=== PATIENT | male | born 1950 | race Caucasian/White ===

== ENCOUNTER 2017-11-12 12:59 | Observation (INO) | payer BC, OTHER ==
[~2017-11-12] VITALS: Ht 193 cm; Wt 108.1 kg
[2017-11-12 13:22] LABS: INTER. NORMALIZED RATIO 1.1
[2017-11-12 13:23] LABS: AMYLASE 87 IU/L (1-118)
[2017-11-12 13:25] LABS: PTT 31.2 SEC (25-37)
[2017-11-12 13:32] LABS: LIPASE 14 U/L (1.0-51.0)
[2017-11-12 13:38] LABS: TROP-I INTERPRETATION NEGATIVE; TROPONIN-I < 0.01 ng/mL (0.0-0.30)
[2017-11-12 15:14] LABS: AMPHETAMINE NEGATIVE (500 ng/mL); BARBITURATES NEGATIVE (200 ng/mL); BENZODIAZEPINES NEGATIVE (150 ng/mL); BUPRENORPHINE NEGATIVE (10 ng/mL); COCAINE NEGATIVE (150 ng/mL); METHADONE NEGATIVE (200 ng/mL); METHAMPHETAMINE NEGATIVE (500 ng/mL); OPIATES (MORPHINE) NEGATIVE (100 ng/mL); OXYCODONE NEGATIVE (100 ng/mL); PHENCYCLIDINE NEGATIVE (25 ng/mL); PROPOXYPHENE NEGATIVE (300 ng/mL); THC CANNABINOIDS NEGATIVE (50 ng/mL); TRICYCLIC ANTIDEPRESSANTS NEGATIVE (300 ng/mL)
[2017-11-12 21:08] VITALS: BP 132/79
[2017-11-12 23:24] VITALS: BP 126/73
[2017-11-13 00:48] LABS: TROP-I INTERPRETATION NEGATIVE; TROPONIN-I < 0.01 ng/mL (0.0-0.30)
[2017-11-13 03:37] VITALS: BP 122/76
[2017-11-13 06:13] LABS: HEMATOCRIT 42.6 % (38.0-50.0); HEMOGLOBIN 14.4 G/DL (12.5-16.6); MCH 30.9 PG (29.0-34.0); MCHC 33.8 G/DL (30.0-36.0); MCV 91.4 FL (86-99); PLATELET COUNT 192 K/uL (156-360); RBC DIS.WIDTH-CV 12.7 % (11.8-14.6); RBC DIS.WIDTH-SD 42.2 % (39-53); RED BLOOD COUNT 4.66 M/uL (4.00-5.50); WHITE BLOOD COUNT 6.2 K/uL (4.1-10.2)
[2017-11-13 06:39] LABS: TROP-I INTERPRETATION NEGATIVE; TROPONIN-I < 0.01 ng/mL (0.0-0.30)
[2017-11-13 07:22] LABS: HDL CHOLESTEROL 36 MG/DL (Desirable>=40); LDL CHOLESTEROL 88 mg/dL (Desirable<100); NON-HDL CHOLESTEROL 119 mg/dL (Desirable<160); TOTAL CHOLESTEROL 155 mg/dL (Desirable<200); TRIGLYCERIDES 154 MG/DL (Normal: <150)
[2017-11-13 08:10] VITALS: BP 152/82
[2017-11-13 08:15] VITALS: BP 148/80
[2017-11-13 10:00] LABS: HEMOGLOBIN A1c (GLYCOHEMOGLOB) 5.5 % (Below 5.7)
[2017-11-13 12:19] VITALS: BP 171/69
[2017-11-13] MEDS ORDERED: ATORVASTATIN CA20 MG PO (16:23)
[2017-11-13] MEDS ORDERED: ASPIR-LOW81 MG PO (16:23)
[2017-11-13] MEDS ORDERED: LISINOPRIL5 MG PO (16:24)
[2017-11-13 16:52] VITALS: BP 157/74
== END 2017-11-13 18:42 | disposition home or self-care (01) ==
LOC: EME 12:59 → EDOF 17:26 → 5WEST 17:26 → EDOF 17:26 → ENRESERV 17:45 → 5WEST 20:53
PROVIDERS: Internal Medicine
DX: R42 Dizziness and giddiness (principal); R20.0 Anesthesia of skin; R53.1 Weakness; R07.9 Chest pain, unspecified; I10 Essential (primary) hypertension; R11.0 Nausea; Z83.3 Family history of diabetes mellitus; Z87.891 Personal history of nicotine dependence
CPT/HCPCS: 70450; 70496; 70498; 70551; 71045; 80047; 80061; 82150; 83036; 83690; 84484; 85027; 85610; 85730; 93005; 99281; 99285; G0378; J1644; J2405